=== PATIENT | male | born 1990 | race Caucasian/White ===

== ENCOUNTER 2017-06-05 01:47 | Emergency (ER) | payer MEDICAID ==
[~2017-06-05] VITALS: Ht 177.8 cm; Wt 93.0 kg
[2017-06-05 01:47] VITALS: BP_SYST 141
--- NOTE | 2017-06-05 01:47 | NUR ---
Patient to ER bed 8 to gown for evaluation. Side rails up. Report given to Carlee MAGANA.
--- NOTE | 2017-06-05 01:55 | NUR ---
Patient to ER C/O bug bite, possible spider bite on left lateral ankle about 1.5 days ago. Patient states that yesterday evening he noticed 2 red spots and painful. Denies fever. AAOx4, unlabored breathing, 2 small spots on left lateral ankle, one < 0.5cm diameter, red. Second 2cm posterior 1cm diameter, beefy red with one spot white spot in the middle, no signs of acute distress.
--- NOTE | 2017-06-05 02:12 | NUR ---
MISSY MENDOZA Kwaw at bedside for evaluation.
[2017-06-05] MEDS ORDERED: ceFAZolin SODIUM 1 GM VIAL IM ONE (02:30)
[2017-06-05] MEDS ORDERED: ceFAZolin SODIUM 1 GM VIAL ONE (02:53)
[2017-06-05 03:16] VITALS: BP_SYST 125
--- NOTE | 2017-06-05 03:16 | NUR ---
Patient given written and verbal discharge instructions and verbalizes understanding. ER MD Regalado discussed with patient the results and treatment provided. Patient in stable condition. ID arm band removed. Rx of naprosyn & keflex given. Patient educated on pain management and to follow up with PMD. Pain Scale 0/10. Opportunity for questions provided and answered.
== END 2017-06-05 03:16 | disposition home or self-care (01) ==
LOC: SED 01:47
DX: L03.116 Cellulitis of left lower limb (principal)
CPT/HCPCS: 96372; 99283; J0690

== ENCOUNTER 2024-03-30 12:17 | Emergency (ER) | payer BC, MEDICAID, OTHER ==
[~2024-03-30] VITALS: Ht 175.3 cm; Wt 82.1 kg
[2024-03-30 12:32] VITALS: BP_SYST 133; PULSE 54; RESP 18; TEMP 97.6; O2SAT 97
[2024-03-30 13:35] LABS: BASOPHILS # (AUTO) 0.1 K/uL (0.0-0.2); BASOPHILS % (AUTO) 0.8 % (0.0-2.0); EOSINOPHILS # (AUTO) 0.2 K/uL (0.0-0.4); EOSINOPHILS % (AUTO) 2.8 % (0.0-4.0); HEMATOCRIT 47.1 % (36-54); HEMOGLOBIN 16.5 g/dL (14.0-18.0); LYMPHOCYTES # (AUTO) 2.2 K/uL (1.0-5.5); LYMPHOCYTES % (AUTO) 30.5 % (20.5-51.5); MEAN CORPUSCULAR HEMOGLOBIN 31 pg (27-31); MEAN CORPUSCULAR HGB CONC 35 % (32-36); MEAN CORPUSCULAR VOLUME 89 fL (79.0-98.0); MONOCYTES # (AUTO) 0.4 K/uL (0.0-1.0); MONOCYTES % (AUTO) 5.3 % (1.7-9.3); NEUTROPHILS # (AUTO) 4.3 K/uL (1.8-7.7); NEUTROPHILS % (AUTO) 60.6 % (40.0-70.0); PLATELET COUNT (AUTO) 282 K/uL (130-430); RED BLOOD CELL COUNT(AUTO) 5.27 MIL/uL (4.2-6.2); RED CELL DISTRIBUTION WIDTH 12.9 % (9.0-15.0); WHITE BLOOD COUNT (AUTO) 7.1 K/uL (4.8-10.8)
[2024-03-30 14:23] LABS: CALCIUM 9.2 mg/dL (8.4-11.0); CREATININE 1.02 mg/dL (0.55-1.30); POTASSIUM 4.8 mmol/L (3.5-5.1)
[2024-03-30] MEDS: IBUPROFEN 800 MG TABLET PO ONE (14:45)
[2024-03-30 15:58] LABS: BILIRUBIN,URINE NEGATIVE (NEGATIVE); BLOOD, URINE NEGATIVE (NEGATIVE); CLARITY/URINE CLEAR (CLEAR); COLOR,URINE YELLOW (YELLOW); GLUCOSE,URINE NEGATIVE (NEGATIVE); KETONES,URINE NEGATIVE (NEGATIVE); LEUKOCYTE ESTERASE ,URINE NEGATIVE (NEGATIVE); NITRITE, URINE NEGATIVE (NEGATIVE); PROTEIN URINE NEGATIVE (NEGATIVE); UROBILINOGEN,URINE 0.2 (0.2-1.0)
[2024-03-30] MEDS ORDERED: IBUP-1969 PO (16:27)
[2024-03-30 17:08] VITALS: BP_SYST 133; PULSE 54; RESP 18; TEMP 97.6; O2SAT 97
== END 2024-03-30 16:54 | disposition home or self-care (01) ==
LOC: SED 12:17
DX: N50.811 Right testicular pain (principal); N43.40 Spermatocele of epididymis, unspecified
CPT/HCPCS: 36415; 76870; 80048; 81001; 81003; 85025; 99284

== ENCOUNTER 2024-08-05 16:00 | Emergency (ER) | payer OTHER ==
[~2024-08-05] VITALS: Ht 162.6 cm; Wt 72.6 kg
[~2024-08-05 16:00] MED LIST: IBUP-1969 PO
[2024-08-05 16:17] VITALS: BP_SYST 115; PULSE 85; RESP 20; TEMP 98.3; O2SAT 98
[2024-08-05 17:00] VITALS: O2SAT 0
[2024-08-05 17:41] VITALS: BP_SYST 114; PULSE 55; RESP 18
== END 2024-08-05 17:28 | disposition home or self-care (01) ==
LOC: SED 16:00
DX: Z11.3 Encounter for screening for infections with a predominantly sexual mode of transmission (principal); Z79.899 Other long term (current) drug therapy
CPT/HCPCS: 36415; 86592; 99283